=== PATIENT | female | born 1960 | race Caucasian/White ===

== ENCOUNTER 2022-04-22 05:38 | Outpatient (CLI) | payer OTHER ==
[~2022-04-22] VITALS: Ht 170.2 cm; Wt 90.4 kg
[2022-04-23] MEDS ORDERED: LEVO50CA4 PO (09:28)
[2022-04-23] MEDS ORDERED: ALPR1TAB7 PO (09:28)
[2022-04-23] MEDS ORDERED: LOSA50TA63 PO (09:28)
[2022-04-23] MEDS ORDERED: AZEL23SP NS (09:28)
[2022-04-23] MEDS ORDERED: ROSU40TA23 PO (09:28)
== END 2022-04-23 09:29 | disposition home or self-care (01) ==
LOC: PREOP 05:38
PROVIDERS: ATTEND Surgery
DX: Z01.818 Encounter for other preprocedural examination (principal)

== ENCOUNTER 2022-05-04 08:01 | Day surgery (SDC) | payer OTHER ==
[~2022-05-04] VITALS: Ht 170.2 cm; Wt 90.4 kg
[~2022-05-04 08:01] MED LIST: ALPR1TAB7 PO; AZEL23SP NS; LEVO50CA4 PO; LOSA50TA63 PO; ROSU40TA23 PO
[2022-05-04] MEDS ORDERED: LACTATED RINGERS 1,000 ML IV STA (08:05)
[2022-05-04 08:10] VITALS: BP 137/65
[2022-05-04] MEDS ORDERED: PROPOFOL INJECTION 50 ML IV ONE (09:44)
[2022-05-04 10:10] VITALS: BP 89/62
--- NOTE | 2022-05-04 10:10 | Progress Note-Post Operative ---
Post-Operative Progess Note Surgeon (s)/Optical Dispenser (s) Surgeon KIM WATTS DO Optical Dispenser: FLEX Norris Pre-Operative Diagnosis Screening Post-Operative Diagnosis Diverticula Int hemorrhoids Procedure & Operative Findings Date of Procedure 05/04/22 Procedure Performed/Findings Colonoscopy PROCEDURE NOTE: After informed consent was obtained, the patient was brought to the endoscopy suite, placed in bed in left lateral decubitus position. She was administered IV sedation by the CHILD AND FAMILY SERVICES WORKER who then monitored her vitals the entire time, heart rate, blood pressure and pulse ox and the scope was inserted. On the way in noted some diverticula, took a picture and then pushed all the way to about 150 cm and pushed into the cecum. Took a picture of appendiceal orifice and then slowly withdrew the scope insufflating to look circumferentially at the carrillo starting in the cecum, up the ascending colon to the hepatic flexure, then down the transverse colon, splenic flexure, into the descending colon down in the sigmoid and then into the rectal vault and retroflexed the scope. Took a picture of the internal hemorrhoids. The patient tolerated the procedure. She was recovered in endoscopy suite. Recommended for repeat colonoscopy in 10 years. Anesthesia Type IV sedation by CHILD AND FAMILY SERVICES WORKER Estimated Blood Loss Estimated blood loss (mL): none Specimens/Packing Specimens Removed none KIM WATTS DO May 04, 2022 10:10
--- NOTE | 2022-05-04 10:12 | Endoscopy Discharge Instruct ---
Endo Procedure/Findings Findings 1.: Diverticulosis 2.: Internal Hemorrhoids Discharge Instructions - Activity: You might feel a little sleepy until tomorrow. This is due to the medicine you received to relax you. Until tomorrow, you should: NOT drive a car, operate machinery or power tools. NOT drink any alcoholic beverages. NOT make any important decisions or sign importortant papers. Do not return to work until tomorrow, unless otherwise instructed. Resume previous activities tomorrow. Diet: Start by taking liquids. If you tolerate liquids, advance to solid food. 1.: Colonscopy in 10 years Notify Physician - If you experience excessive bleeding, unusual abdominal pain, fever, or chest pain, contact your doctor immediately. KIM WATTS DO May 04, 2022 10:12
[2022-05-04 10:15] VITALS: BP 105/59
[2022-05-04 10:20] VITALS: BP 104/59
[2022-05-04 10:50] VITALS: BP 126/82
--- NOTE | 2022-05-04 10:53 | Anesthesia-General Post-Op ---
MAC Patient Condition Mental Status/LOC: Same as Preop Cardiovascular: Satisfactory Nausea/Vomiting: Absent Respiratory: Satisfactory Pain: Controlled Complications: Absent Post Op Complications Complications None Follow Up Care/Instructions Patient Instructions None needed. Anesthesiology Discharge Order Discharge Order Patient is doing well, no complaints, stable vital signs, no apparent adverse anesthesia problems. No complications reported per nursing. SULTANA HAYDEN CRNA May 04, 2022 10:53
[2022-05-04 11:05] VITALS: BP 126/82
== END 2022-05-04 11:05 | disposition home or self-care (01) ==
LOC: ENDO 08:01
PROVIDERS: ATTEND Surgery
DX: Z12.11 Encounter for screening for malignant neoplasm of colon (principal); K57.30 Diverticulosis of large intestine without perforation or abscess without bleeding; K64.8 Other hemorrhoids; Z80.0 Family history of malignant neoplasm of digestive organs

== ENCOUNTER 2022-07-07 22:55 | Emergency (ER) | payer OTHER ==
[~2022-07-07] VITALS: Ht 170.1 cm; Wt 88.2 kg
[2022-07-07] MEDS ORDERED: ORPHENADRINE 60 MG/2 ML (NORFLEX) AMP (ED ONLY) IM STA (23:12)
[2022-07-07] MEDS ORDERED: KETOROLAC 30 MG/ML VIAL IM STA (23:12)
--- NOTE | 2022-07-07 23:32 | ED Back Pain ---
General Chief Complaint: Back Problems Stated Complaint: NECK/SHOULDER PAIN Nursing Triage Note: Patient states that she began having back pain after painting starting 06-29-22. Patient had visited urgent care and they prescribed Flexeril. 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 Patient had been taking both Ibuprofen and Flexeril. Source of Information: Patient History of Present Illness Date Seen by Provider: Jul 07, 2022 Time Seen by Provider: 22:58 Initial Comments 62-year-old female presenting with complaints of bilateral neck pain since July 09, 2022. She states that the pain started after she had been doing an extensive amount of painting and lifting of her head. She denies having pain or problems with her neck previously. She does not have any pain radiating down her arms but she does have some chronic pain radiating from her lower back down her legs. She denies any direct trauma to her back or neck. She has tried taking cbyp-wny-erfotqf medication with little to no improvement. Today she went to the clinic and was seen. The have prescribed cyclobenzaprine or Flexeril to try and help with muscle spasms and pain. She is taken 2 doses of that tonight and felt that it was not helping. She had tried laying flat on the floor like they suggested through the clinic and she started getting nauseated with the pain. She did not have any vomiting. She still has no pain radiating down her arms. There is no new numbness or weakness in her arms or legs. The pain radiates up to the back of her head and is causing her to have a headache as well. Location: C-Spine Timing/Duration: Other (Since 06/29/2022) Severity: Severe Pain/Injury Location: Neck Method of Injury: Other (overuse with painting) Modifying Factors: Worse With Movement Associated Symptoms: muscle spasms; No fever, No weakness, No numbness in legs/feet, No tingling in legs/feet, No sensory/motor loss; lower back pain (chronic); No loss of bladder control, No loss of bowel control Allergies and Home Medications Allergies Coded Allergies: Sulfa (Sulfonamide Antibiotics) (Unverified Allergy, Unknown, 04/23/22) Patient Home Medication List Home Medication List Reviewed: Yes Alprazolam (Alprazolam) 1 Mg Tablet, 1 MG PO TID, (Reported) Entered as Reported by: SOFIA TAYLOR on 04/23/22927 Azelastine/Fluticasone (Dymista Nasal Carmel) 137 Mcg-50 Mcg/Carmel [place].pump, 23 GM NS DAILY, (Reported) Entered as Reported by: SOFIA TAYLOR on 04/23/22927 Hydrocodone/Acetaminophen (Hydrocodone-Acetamin 5-325 mg) 5 Mg-325 Mg Tablet, 1 TAB PO Q6H PRN for PAIN-SEVERE (8-10) Prescribed by: ZACH KHOURY on 07/07/22 2342 Levothyroxine Sodium (Levothyroxine) 50 Mcg Capsule, 50 MCG PO DAILY, (Reported) Entered as Reported by: SOFIA TAYLOR on 04/23/22927 Losartan Potassium (Losartan Potassium) 50 Mg Tablet, 50 MG PO DAILY, (Reported) Entered as Reported by: SOFIA TAYLOR on 04/23/22927 Methocarbamol (Methocarbamol) 750 Mg Tablet, 750 MG PO Q6H PRN for MUSCLE SPASMS Prescribed by: ZACH KHOURY on 07/07/22 2341 Rosuvastatin Calcium (Rosuvastatin Calcium) 40 Mg Tablet, 40 MG PO DAILY, (Reported) Entered as Reported by: SOFIA TAYLOR on 04/23/22927 Review of Systems Constitutional: No chills, No dizziness, No fever EENTM: no symptoms reported Respiratory: no symptoms reported Cardiovascular: no symptoms reported Gastrointestinal: see HPI Genitourinary: no symptoms reported Musculoskeletal: see HPI Skin: No change in color, No rash Psychiatric/Neurological: Headache; Denies Numbness, Denies Paresthesia, Denies Tingling, Denies Weakness Past Kgwrtxv-Lltibf-Oxczpe Hx Patient Social History Tobacco Use?: No Substance use?: No Alcohol Use?: No Pt feels they are or have been: No Immunizations Up To Date First/Initial COVID19 Vaccinat: YES Second COVID19 Vaccination Rosendo: YES Third COVID19 Vaccination Date: YES COVID19 Vaccine 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 Seasonal Allergies Seasonal Allergies: No Past Medical History Surgeries: Yes Appendectomy, Hysterectomy, Orthopedic Respiratory: No Cardiac: Yes High Cholesterol Neurological: No Genitourinary: No Gastrointestinal: No Musculoskeletal: No Endocrine: Yes Diabetes, Insulin dep HEENT: No Cancer: No Psychosocial: Yes Depression Integumentary: No Blood Disorders: No Physical Exam Vital Signs Vital Signs - First Documented 07/07/22 22:58 Temp 36.4 Pulse 86 Resp 16 B/P (MAP) 170/84 (112) Pulse Ox 100 O2 Delivery Room Air Capillary Refill : Less Than 3 Seconds Height, Weight, BMI Height: '" Weight: lbs. oz. kg; 30.00 BMI Method: General Appearance: WD/WN, Anxious HEENT: PERRL/EOMI, Pharynx Normal Neck: Limited Range of Motion (due to pain), Tender Lateral (bilateral paraspinal cervical muscle tender to palpation with spasms) Cardiovascular: Regular Rate, Rhythm, Normal Peripheral Pulses Respiratory: Chest Non Tender, Lungs Clear Neurologic/Psychiatric: Alert, Oriented x3, No Motor/Sensory Deficits, sanitation worker hosing machinery II- XII Norm as Tested Skin: Normal Color, Warm/Dry; No Rash Progress/Results/Core Measures Results/Orders My Orders Orders - ZACH KHOURY MD Ketorolac Injection (Toradol Injection) (07/07/22 23:12) Orphenadrine Inj (Ed Only) (Norflex Inje (07/07/22 23:12) Ct Cervical Spine Wo (07/07/22 23:12) Rx-Hydrocodone/Apap 5-325 Mg (Rx-Vicodin (07/08/22 00:30) Medications Given in ED Current Medications Medications Dose Ordered Sig/Ian Route Start Time Stop Time Status Last Admin Dose Admin Acetaminophen/ Hydrocodone Bitart 1 ea Q6H PRN PO 07/08/22 00:30 07/08/22 00:28 1 EA Vital Signs/I&O 07/07/22 07/08/22 22:58 00:29 Temp 36.4 Pulse 86 86 Resp 16 16 B/P (MAP) 170/84 (112) 170/84 Pulse Ox 100 100 O2 Delivery Room Air Room Air Blood Pressure Mean: 112 Progress Progress Note #1: Progress Note Differential diagnosis includes cervical spine stenosis, cervical spine spine arthritis with pinched nerve, tension headache, cervical myofascial strain, cervical compression fracture. Since she has not had any imaging and is complaining of severe pain will order a CT scan of her cervical spine to look for acute bony abnormalities her cervical spinal stenosis. She has not had any direct trauma to her neck or upper back but has had overuse with painting and reaching above her shoulder level. In terms of pain we will try a dose of Toradol 30 mg IM with Norflex 60 mg IM. Since she was not having any significant benefit with the Flexeril or cyclobenzaprine as a muscle relaxer we will try switching her to a different muscle relaxer to see if it might do better. She may need additional pain medicine to help with her symptoms as well. Progress Note #2: Time: 23:55 Progress Note On my personal review and interpretation of her CT scan of cervical spine without contrast I do not see any acute fracture, compression fracture or dislocation. She does have degenerative arthritic changes. Awaiting radiology over-read. Progress Note #3: Time: 00:12 Progress Note I reviewed the radiologist report from Dr. Bishnu John MD. He saw straightening of cervical lordosis and multilevel degenerative changes with mild bulging of multiple discs. No spinal canal stenosis or fractures. Recommend MRI for further evaluation if clinically indicated. Will see how she is feeling after the Toradol and Norflex. Can discharge to home with methocarbamol to replace the cyclobenzaprine and Hydrocodone for severe pain. Check back with clinic for continued symptoms as she may need MRI or referral for physical therapy if not improving. On recheck patient reports pain down to 4/10 and feels much better. She feels like she can rest. Will send with a few Hydrocodone if needed for severe pain. Encouraged to change to the new muscle relaxer and continue with alternating ice and heat. check with pcp for continued concerns and may need physical therapy or MRI if not improving. Diagnostic Imaging Diagonstic Imaging: CT Plain Films/CT/US/NM/MRI: c-spine Comments CT scan of the cervical spine without IV contrast showed Impression: 1. Straightening of the normal cervical lordosis. 2. Mild multilevel disc protrusions. 3. If further evaluation is clinically necessary, consider correlation with MRI. Read by radiologist Dr. Bishnu John MD at [id number] and faxed at [phone] Reviewed: [facility] Primary Impression: Acute cervical myofascial strain Qualified Codes: S16.1XXA - Strain of muscle, fascia and tendon at neck level, initial encounter Additional Impressions: Acute tension headache Qualified Codes: G44.201 - Tension-type headache, unspecified, intractable Overuse injury Disposition: HOME, SELF-CARE Condition: Stable Departure-Patient Inst. Decision time for Depature: 00:19 Referrals: LIDIA CASTILLO MD (PCP/Family) Primary Care Physician Patient Instructions: Cervical Sprain ED, Neck Pain ED, Muscle Strain ED, Headache, Adult ED, Using Cold for Pain, Using Heat for Pain Add. Discharge Instructions: Stop the cyclobenzaprine since it was not helping her muscle spasms and tightness. Try taking the methocarbamol or Robaxin in its place. Continue to try alternating ice and heat to your neck to help with the pain and inflammation. For severe pain take the pain pill. Since this is a narcotic it can cause constipation and make you feel lightheaded. Make sure to drink plenty of fluids and stay well-hydrated. For continued symptoms check back through the clinic as they may have to refer you for physical therapy or to have additional imaging of your neck beyond what is available through the emergency department. All discharge instructions reviewed with patient and/or family. Voiced understanding. Scripts Hydrocodone/Acetaminophen (Hydrocodone-Acetamin 5-325 mg) 5 Mg-325 Mg Tablet 1 TAB PO Q6H PRN for PAIN-SEVERE (8-10) for 3 Days, #12 TAB 0 Refills Prov: ZACH KHOURY MD 07/07/22 Methocarbamol (Methocarbamol) 750 Mg Tablet 750 MG PO Q6H PRN for MUSCLE SPASMS for 7 Days, #28 TAB 0 Refills Prov: ZACH KHOURY MD 07/07/22 ZACH KHOURY MD Jul 07, 2022 23:32
[2022-07-07] MEDS ORDERED: METH-732 PO (23:41)
[2022-07-07] MEDS ORDERED: ACHD5005 PO (23:41)
[2022-07-08 00:29] VITALS: BP 170/84
--- NOTE | 2022-07-08 06:40 | Diagnostic Imaging Report ---
PROCEDURE: CT cervical spine without contrast. TECHNIQUE: Multiple contiguous axial images were obtained through the cervical spine without the use of intravenous contrast. Sagittal and coronal reformations were then performed. Auto Exposure Controls were utilized during the CT exam to meet ALARA standards for radiation dose reduction. INDICATION: Neck pain since strain on 06/29/2022. EXAMINATION: CT cervical spine without contrast 07/07/2022. FINDINGS: There is straightening of the normal curvature likely positional or due to muscle spasm. No fractures or subluxations appreciated. The prevertebral soft tissues unremarkable. Lung apices clear. IMPRESSION: 1. Straightening of the normal curvature with no fractures appreciated. If pain persists or if there is further concern MRI could provide further characterization as clinically indicated. Findings agree with the preliminary report. Dictated by: Dictated on workstation # [id number]
== END 2022-07-08 00:30 | disposition home or self-care (01) ==
LOC: EDUNIT# 22:55 → ER FS 22:57
DX: S16.1XXA Strain of muscle, fascia and tendon at neck level, initial encounter (principal); G44.209 Tension-type headache, unspecified, not intractable; X50.1XXA Overexertion from prolonged static or awkward postures, initial encounter
CPT/HCPCS: 72125; 99284